=== PATIENT | female | born 1990 | race Caucasian/White ===

== ENCOUNTER 2018-04-19 18:08 | Emergency (ER) | payer OTHER, MEDICAID, SELFPAY ==
[2018-04-19 18:23] VITALS: BP 118/86; PULSE 109; RESP 20; TEMP 36.8; O2SAT 100
--- NOTE | 2018-04-19 18:26 | DI.RAD.S_ITS ---
PROCEDURE: XR WRIST LT MIN 3V INDICATIONS: lt distal medial pain after catching a cheerleader TECHNIQUE: 3 views of the wrist were acquired. COMPARISON: None. FINDINGS: Bones: No fractures or dislocations. No suspicious bony lesions. Soft tissues: No suspicious soft tissue calcifications. IMPRESSION: No acute fracture or dislocation. If pain persists, consider repeat imaging in 5-7 days to exclude occult fracture. Dictated by: Estefany Maciel M.D. on 04/19/2018 at 18:50 Approved by: Estefany Maciel M.D. on 04/19/2018 at 18:50
--- NOTE | 2018-04-19 20:48 | ED.UPPEXIN ---
HPI - Extremity Injury (Upper) General Chief Complaint: Extremity Injury, Upper Stated Complaint: injured wrist last week. Time Seen by Provider: 04/19/18 20:43 Source: patient Mode of arrival: ambulatory Limitations: no limitations History of Present Illness HPI narrative: the patient is a 27-year-old female who presents with left wrist pain. 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 Girl handed all right on her wrist. She said it was never really swollen but she continues to have pain. She was taping it which she said initially helped. She has no numbness or tingling. complaint: injury to: left Onset (ago): week(s) (1) Related Data Home Medications Medication Instructions Recorded Confirmed amoxicillin 500 mg PO TID #0 09/27/17 Review of Systems Review of Systems GENERAL: Denies chills,fever HEENT: Denies throat pain RESPIRATORY: Denies dyspnea, cough, wheezing CARDIOVASCULAR: Denies chest pain, palpitations GASTROINTESTINAL: Denies nausea, vomiting MUSCULOSKELETAL: See HPI SKIN: No rash, no laceration, no pruritus NEUROLOGIC: Denies weakness, dizziness, headache, numbness 8 point review of systems is negative except for those stated above and HPI PFSH Medical History Anxiety (Acute) Social History Smoking Status: Never smoker alcohol intake: never substance use type: does not use Exam Initial Vital Signs Initial Vital Signs: Vital Signs Temperature 98.3 F 04/19/18 18:23 Pulse Rate 109 H 04/19/18 18:23 Respiratory Rate 20 04/19/18 18:23 Blood Pressure 118/86 04/19/18 18:23 Pulse Oximetry 100 04/19/18 18:23 GENERAL: Well-appearing, well-nourished and in no acute distress. CARDIOVASCULAR: peripheral pulses in tact, cap refill <2 sec RESPIRATORY: No respiratory distress, speaks in full sentences without difficulty EXTREMITIES: Normal range of motion, no clubbing or edema. Neurovascularly intact. - left wrist no swelling no contusion neurovascularly intact full range of motion NEUROLOGICAL: Cranial nerves II through XII grossly intact. Normal gait and speech. SKIN: Warm, dry, no petechiae, no rashes or lesions. Course Orders Ordered: ED Orders 04/19/18 18:26 XR wrist LT min 3V Stat Vital Signs - 8 hr 04/19/18 18:23 Temperature 98.3 F Pulse Rate 109 H Respiratory Rate 20 Blood Pressure 118/86 Pulse Oximetry 100 MDM - Extremity Injury (Upper) Imaging Data left wrist x-ray: Radiologist's impression: PROCEDURE: XR WRIST LT MIN 3V INDICATIONS: lt distal medial pain after catching a cheerleader TECHNIQUE: 3 views of the wrist were acquired. COMPARISON: None. FINDINGS: Bones: No fractures or dislocations. No suspicious bony lesions. Soft tissues: No suspicious soft tissue calcifications. IMPRESSION: No acute fracture or dislocation. If pain persists, consider repeat imaging in 5-7 days to exclude occult fracture. Dictated by: Estefany Maciel M.D. on 04/19/2018 at 18:50 Discharge Plan Departure Patient Disposition: Home Clinical Impression: Left wrist sprain Instructions: Wrist Sprain Activity Restrictions/Additional Instructions: *You have been diagnosed with left wrist sprain *What to do: wear brace while active, increased movement as tolerated *Continue to take medications as directed Tylenol and Motrin please take as directed *Follow up with your primary care provider in 2-3 days *Return to ER if you should have any new, worsening or concerning symptoms Prescriptions: No Action amoxicillin 250 MG capsule 500 mg PO TID Qty: 0 RF: 0
[2018-04-19 21:04] VITALS: RESP 16
--- NOTE | 2018-04-19 21:04 | PC.NURSE ---
pt reports she caught a cheerleader wrong during practice, sharp pain to lt distal ulna, tender on exam, no deformity/contusion/swelling noted, distal cms intact with full AROM
== END 2018-04-19 21:05 | disposition home or self-care (01) ==
PROVIDERS: Emergency Provider Emergency Medicine
DX: S63.502A Unspecified sprain of left wrist, initial encounter (principal); W23.0XXA Caught, crushed, jammed, or pinched between moving objects, initial encounter
CPT/HCPCS: 29260; 73110; 99282; 99283

== ENCOUNTER 2018-11-13 19:27 | Emergency (ER) | payer OTHER, SELFPAY ==
[2018-11-13 19:37] VITALS: BP 131/86; PULSE 88; RESP 18; TEMP 37.3; O2SAT 100; BMI 24.7
--- NOTE | 2018-11-13 19:48 | ED_ITS ---
HPI - Extremity Problem <Nilsa Meng PA-C - Last Filed: 11/13/18 22:03> General Chief complaint: Extremity Problem,Nontraumatic Stated complaint: left wrist pain Time Seen by Provider: 11/13/18 20:06 Source: patient Mode of arrival: ambulatory Limitations: no limitations History of Present Illness HPI Narrative: This 28-year-old right-handed female comes in due to chronic, worsening left wrist pain. 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 She states that she was seen another local hospital, x-ray negative for fracture, and was given a wrist brace that she wore for 5 or 6 weeks but did not feel like the brace help. She states she started taping and felt better if the wrist was taped or she squeezed her hand around her wrist for while. She states that has no longer been working and she has constant pain gradually getting worse over the last month. She states she is finding it hard to supervisor liquid yeast objects and twist or open a jar for example. She states that last night, she went to move her pillow and felt a snap sensation in that wrist. She is concerned about possibility of previously undiagnosed injury. She states she has tried taking some Tylenol arthritis or ibuprofen but has not done that consistently, has not taken it today. She states ice helped somewhat. She feels like it is pain rather than weakness that stops her from movement, states no paresthesia or other new symptoms today. Related Data Home Medications Medication Instructions Recorded Confirmed amoxicillin 500 mg PO TID #0 09/27/17 Previous Rx's Medication Instructions Recorded lidocaine [Lidoderm] 1 patch TOP Q24H #30 each 11/13/18 meloxicam [Mobic] 15 mg PO DAILY #20 tab 11/13/18 Allergies Allergy/AdvReac Type Severity Reaction Status Date / Time No Known Drug Allergies Allergy Verified 11/13/18 19:45 Review of Systems <Nilsa Meng PA-C - Last Filed: 11/13/18 22:03> Review of Systems ROS Unobtainable: All systems reviewed & are unremarkable except as noted in HPI and below PFSH <GEE Clayton Last Filed: 11/13/18 22:03> Medical History (Updated 11/13/18 @ 21:10 by Nilsa Meng PA-C) Anxiety (Chronic) Surgical History (Updated 11/13/18 @ 20:31 by Nilsa Meng PA-C) Status post appendectomy (Resolved) Social History Smoking Status: Never smoker alcohol intake: never substance use type: does not use Social History Smoking Status: Never smoker alcohol intake: never substance use type: does not use Exam <Nilsa Meng PA-C - Last Filed: 11/13/18 22:03> Narrative Exam Narrative: GENERAL APPEARANCE: Patient sitting comfortably, in no distress. LUNGS: Clear to auscultation bilaterally. HEART: Rate and rhythm regular without murmur, normal S1 and S2, no S3 or S4. MUSCULOSKELETAL: Left wrist moderate tenderness on the ulnar side, more on the dorsum, less tenderness in the mid wrist, no tenderness on the radial side. Full a ROM with tenderness on full flexion and medial deviation. No tenderness over the hand or fingers. No tenderness over the for. [employer] strength 5/5 with tenderness NEUROVASCULAR: Left hand fingers are warm and pink with brisk cap refill, sensation grossly intact Initial Vital Signs Initial Vital Signs: Vital Signs Temperature 99.1 F 11/13/18 19:37 Pulse Rate 88 11/13/18 19:37 Respiratory Rate 18 11/13/18 19:37 Blood Pressure 131/86 11/13/18 19:37 Pulse Oximetry 100 11/13/18 19:37 <Benjy Kovacs DO - Last Filed: 11/14/18 03:08> Initial Vital Signs Initial Vital Signs: Vital Signs Temperature 99.1 F 11/13/18 19:37 Pulse Rate 88 11/13/18 19:37 Respiratory Rate 18 11/13/18 19:37 Blood Pressure 131/86 11/13/18 19:37 Pulse Oximetry 100 11/13/18 19:37 Course <Nilsa Meng PA-C - Last Filed: 11/13/18 22:03> Orders Ordered: ED Orders 11/13/18 20:16 XR wrist LT min 3V Stat Vital Signs - 8 hr 11/13/18 19:37 11/13/18 21:15 Temperature 99.1 F Pulse Rate 88 74 Respiratory Rate 18 14 Blood Pressure 131/86 107/73 Pulse Oximetry 100 100 <Benjy Kovacs DO - Last Filed: 11/14/18 03:08> Orders Ordered: ED Orders 11/13/18 20:16 XR wrist LT min 3V Stat Vital Signs - 8 hr 11/13/18 19:37 11/13/18 21:15 Temperature 99.1 F Pulse Rate 88 74 Respiratory Rate 18 14 Blood Pressure 131/86 107/73 Pulse Oximetry 100 100 MDM - Extremity (Nontraumatic) <Nilsa Meng PA-C - Last Filed: 11/13/18 22:03> Imaging Data wrist: Radiologist's impression: [address] [address] XRay Report Signed Patient: Liaan Stratton CMR#: [id number] : 1990Acct:[id number] Age/Sex: 28 / FDate of Service: 11/13/18 Loc: ED Accession Number: [id number] Procedure: XR wrist LT min 3V Ordering Provider: Nilsa Meng P.A-C PROCEDURE: XR WRIST LT MIN 3V INDICATIONS: medial pain TECHNIQUE: 4 views of the wrist were acquired. COMPARISON: [facility], , XR WRIST LT MIN 3V, 04/19/2018, 18:06. FINDINGS: Bones: No fractures or dislocations. No suspicious bony lesions. Scaphoid view: Negative Soft tissues: No suspicious soft tissue calcifications. IMPRESSION: No acute fracture. No osseous lesion. If clinical suspicion and/or symptoms persist, further assessment with repeat plainfilms, or advanced imaging (e.g., CT, MRI, or bone scan) may be helpful for further assessment. Dictated by: Lydia Calderon M.D. on 11/13/2018 at 20:27 Approved by: Lydia Calderon M.D. on 11/13/2018 at 20:28 Discharge Plan Departure Patient Disposition: Home Clinical Impression: Left wrist tendinitis Discharge Date/Time: 11/13/18 21:16 Interventions: ED Discharge Assessment Last Done: 11/13/18 21:15 Instructions: DI for Tendinitis Activity Restrictions/Additional Instructions: Your x-ray did not show evidence of bone or joint injury today, and I suspect that you have a chronic tendon inflammation in your wrist. This is exacerbated by overuse. 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 This is called meloxicam. This will not cure the problem, but may help the pain and inflammation. I also sent in a prescription for topical anesthetic patches for you to try around the sore side of the wrist. You could wear that inside the splint. Please try your wrist immobilizer 11/01 again to keep stress off of the wrist. Please call your new PCP office and let them know that you were seen in the emergency room so that they can get you in for follow-up, as therapy for this wrist may be helpful as well. You can supplement with Tylenol as needed for pain. Prescriptions: New meloxicam [Mobic] 15 mg tablet 15 mg PO DAILY Qty: 20 RF: 0 lidocaine [Lidoderm] 5 % adhesive patch,medicated 1 patch TOP Q24H Qty: 30 RF: 0 No Action amoxicillin 250 MG capsule 500 mg PO TID Qty: 0 RF: 0 [facility] <Benjy Kovacs DO - Last Filed: 11/14/18 03:08> [place] [facility] Attending Rashid Attestation: I was immediately available in the department for consultation. Documentation has been reviewed. I agree with assessment and plan.
--- NOTE | 2018-11-13 19:56 | PC.NURSE ---
States having difficulty gripping items. Was handed a pen by a friend and dropped it. The pain has been increasing over the last month. Has been wearing wrist brace.
--- NOTE | 2018-11-13 20:16 | DI.RAD.S_ITS ---
PROCEDURE: XR WRIST LT MIN 3V INDICATIONS: medial pain TECHNIQUE: 4 views of the wrist were acquired. COMPARISON: [facility], , XR WRIST LT MIN 3V, 04/19/2018, 18:06. FINDINGS: Bones: No fractures or dislocations. No suspicious bony lesions. Scaphoid view: Negative Soft tissues: No suspicious soft tissue calcifications. IMPRESSION: No acute fracture. No osseous lesion. If clinical suspicion and/or symptoms persist, further assessment with repeat plainfilms, or advanced imaging (e.g., CT, MRI, or bone scan) may be helpful for further assessment. Dictated by: Lydia Calderon M.D. on 11/13/2018 at 20:27 Approved by: Lydia Calderon M.D. on 11/13/2018 at 20:28
[2018-11-13 21:15] VITALS: BP 107/73; PULSE 74; RESP 14; O2SAT 100
== END 2018-11-13 21:16 | disposition home or self-care (01) ==
PROVIDERS: Emergency Provider Internal Medicine
DX: M65.842 Other synovitis and tenosynovitis, left hand (principal)
CPT/HCPCS: 73110; 99283

== ENCOUNTER 2019-09-29 13:41 | Emergency (ER) | payer SELFPAY ==
[2019-09-29] VITALS (8 sets, daily range): BP systolic 99–110; BP diastolic 55–73; PULSE 63–86; RESP 12–18; TEMP 36.7–37.1; O2SAT 98–100; BMI 23.0
[2019-09-29 14:16] LABS: Add Manual Diff / Slide Review NO; Basophils Absolute Auto 0 /uL (0-100); Basophils Percent Auto 0.7 % (0-2); Eosinophils Absolute Auto 100 /uL (0-450); Eosinophils Percent Auto 0.9 % (2-4); Hematocrit 42.3 % (36-46); Hemoglobin 14.2 g/dL (12.0-16.0); Lymphocytes Absolute Auto 900 /uL (1100-4500); Lymphocytes Percent Auto 12.1 % (25-40); Mean Corpuscular HGB Conc 33.6 % (30-36); Mean Corpuscular Volume 89.2 fL (80-100); Monocytes Absolute Auto 600 /uL (0-900); Monocytes Percent Auto 8.4 % (3-14); Neutrophils Absolute Auto 5500 /uL (1500-7000); Neutrophils Percent Auto 77.9 % (50-75); Red Blood Cell Count 4.74 X10^6/uL (4.0-5.2); Red Cell Distribution Width 13.6 % (11.6-14.8); White Blood Cell Count 7.1 X10^3/uL (4.5-11.0)
[2019-09-29 14:20] LABS: INR 1.1 (0.9-1.3); Prothrombin Time 12.4 SECONDS (10.1-12.7)
[2019-09-29 14:23] LABS: PTT Partial Thromboplastin Tim 28 SECONDS (26.4-36.2)
[2019-09-29 14:27] LABS: Alanine Aminotransferase 26 IU/L (<35); Albumin 4.2 g/dL (3.5-5.0); Albumin Globulin Ratio 1.3 (1.0-2.8); Alkaline Phosphatase 51 U/L (38-126); Aspartate Aminotransferase 34 IU/L (14-36); BUN Creatinine Ratio 14.7 (6-22); Bilirubin Total 0.5 mg/dL (0.2-1.3); Blood Urea Nitrogen 11 mg/dL (7-17); Calcium 9.2 mg/dL (8.4-10.2); Carbon Dioxide 31 mmol/L (22-32); Chloride 99 mmol/L (98-107); Estimated Glomerular Filt Rate > 60.0 mL/min (>60); Globulin 3.2 g/dL (1.7-4.1); Glucose 149 mg/dL (70-100); HEMOLYSIS < 15 (0-50); Lipase 89 U/L (23-300); Potassium 3.4 mmol/L (3.4-5.1); Sodium 137 mmol/L (137-145); Total Protein 7.4 g/dL (6.3-8.2)
--- NOTE | 2019-09-29 14:51 | DI.US.S_ITS ---
PROCEDURE: US ABDOMEN LIMITED INDICATIONS: EPIGASTRIC PAIN; NAUSEA, VOMITING TECHNIQUE: Real-time scanning was performed of the abdominal and retroperitoneal organs, with image documentation. COMPARISON: None. FINDINGS: Liver: Liver is normal in size. Increased liver parenchyma echotexture is seen. No discrete hepatic lesion. Gallbladder: There is no gallstone. No gallbladder wall thickening or pericholecystic fluid. No sonographic Arboleda's sign. Biliary ducts: Intrahepatic bile ducts are non-dilated. Extrahepatic bile duct caliber measures 3.2 mm. Normal is 6-7 mm or less in diameter, or 10 mm or less post-cholecystectomy. Pancreas: Visualized portions of the pancreas are sonographically normal. IMPRESSION: Hepatic steatosis, no discrete hepatic lesion. Normal appearing gallbladder. No biliary ductal dilatation. Dictated by: Mike Cueva M.D. on 09/29/2019 at 15:09 Approved by: Mike Cueva M.D. on 09/29/2019 at 15:09
[2019-09-29 14:54] LABS: Creatine Kinase 77 U/L (30-135)
[2019-09-29 15:07] LABS: Troponin I < 0.012 ng/mL (0.01-0.034)
[2019-09-29] MEDS: SODIUM CHLORIDE 0.9% 1,000 ML 1000 ML IV (15:40)
[2019-09-29] MEDS: ONDANSETRON 4 MG/2 ML INJ IV (15:42)
[2019-09-29] MEDS: KETOROLAC 60 MG/2 ML VIAL 15 MG IV (15:43)
[2019-09-29] MEDS: PANTOPRAZOLE 40 MG VIAL IV (15:45)
[2019-09-29] MEDS: MAG HYDROX/ALUMINUM/SIMETH SUS 20 ML, LIDOCAINE VISCOUS 2% 15 ML PO (18:45)
--- NOTE | 2019-09-29 23:30 | ED.ABDPAIN ---
HPI - Abdominal Pain <GRANT Alaniz - Last Filed: 09/30/19 00:07> General Chief Complaint: Abdominal Pain Stated Complaint: Stomach pain/passed out in bathroom nausea Time Seen by Provider: 09/29/19 14:19 Source: patient Mode of arrival: Ambulatory Limitations: no limitations History of Present Illness HPI narrative: This is a 29-year-old female, nonsmoker, who presents to ED with epigastric discomfort for 1 week and nausea and vomiting, dizziness and syncopal episode when she was in the bathroom to vomit. Patient reports she did not injured from syncopal episode and she knew she was going to pass out and laid herself down in the bathroom floor. She is not sure the duration of syncopal episode. She was able to make it back to the bed after this. Patient reports pain is worse with taking deep breaths and pain radiates to right shoulder and back region. She has been having dry heaves mostly and denies blood in her vomit. She reports abdominal bloatedness and had 1 episode of diarrhea this morning. Patient reports her pain is 9/10, sharp, stinging, and stabbing in character and constant. Patient reports chills and feeling sweaty. Patient denies ill exposure, sore throat, cough, body aches. Patient also reports right flank pain but denies urinary symptoms such as urgency, hematuria, dysuria. Patient reports history of appendectomy. Related Data Home Medications Medication Instructions Recorded Confirmed amoxicillin 500 mg PO TID #0 09/27/17 Previous Rx's Medication Instructions Recorded lidocaine [Lidoderm] 1 patch TOP Q24H #30 each 11/13/18 meloxicam [Mobic] 15 mg PO DAILY #20 tab 11/13/18 ondansetron 4 mg PO Q8H PRN 4 Days #10 tab 09/30/19 Allergies Allergy/AdvReac Type Severity Reaction Status Date / Time No Known Drug Allergies Allergy Verified 09/29/19 13:50 Review of Systems <GRANT Alaniz - Last Filed: 09/30/19 00:07> Review of Systems Narrative: General: Denies (+) feeling sweat and chills, fatigue, malaise, sweats. HEENT: Denies sinus pain, ear pain, sore throat, difficulty swallowing, dizziness. Respiratory: Denies dyspnea, cough, wheezing, hemoptysis, sputum. Cardiovascular: Denies chest pain, palpitations, orthopnea, edema. Gastrointestinal: See HPI : Denies dysuria, frequency, incontinence, hematuria, urinary retention, (+) right flank pain. Musculoskeletal: Denies weakness, joint pain or bony pain. Skin: Denies rash, skin lesions, or other. Neurologic: Denies weakness, (+) dizziness during ambulation, headache, numbness, change in speech, confusion, seizures, incoordination. Psychiatric: No concerning psychosocial issues. 12-point review of systems is negative except for those stated above. Patient History <GRANT Alaniz - Last Filed: 09/30/19 00:07> Medical History Anxiety (Chronic) Surgical History Status post appendectomy (Resolved) Social History Smoking Status: Never smoker alcohol intake: never substance use type: does not use Smoking Status: Never smoker alcohol intake frequency: holidays/special occasions only Substance Use Type: does not use Exam <GRANT Alaniz - Last Filed: 09/30/19 00:07> Narrative Exam Narrative: General appearance: well developed, well nourished, in no acute distress. Head: normocephalic, atraumatic, no scalp lesions, non-tender. ENT: Bilateral auditory canals and tympanic membranes clear. Hearing grossly intact. Nose without bleeding, purulent discharge or deviation. Turbinate without erythema or swelling. Facial sinuses nontender to palpate. Mucous membrane dry, no mucosal lesion. Throat without erythema, tonsillar hypertrophy or exudate. Uvula in midline, airway patent. Neck/Thyroid: neck supple, full range of motion, no visible masses or meningeal signs. No JVD, non-tender without lymphadenopathy. Skin: no suspicious rashes, lesions over visible areas. Warm and dry and appropriate color for ethnicity. Heart: no clubbing, no cyanosis, no edema. S1 and S2 normal. RRR w/o murmurs, clicks, or bruits. Lungs: Breathing even and unlabored. No stridor. No accessory muscles used. Able to speak in full sentences. Chest: normal shape and expansion. Abdomen: Abdomen soft, nondistended, non-obese. No rebound tenderness or guarding. Bowel sounds positive in 4 quadrants. Neurologic: alert and oriented. Cognitive exam, ROLL ICER and PNS grossly intact on informal exam. Psych: good eye contact, normal affect. Initial Vital Signs Initial Vital Signs: Vital Signs Temperature 98.0 F 09/29/19 13:50 Pulse Rate 83 09/29/19 13:50 Respiratory Rate 15 09/29/19 13:50 Blood Pressure 104/73 09/29/19 13:50 Pulse Oximetry 98 09/29/19 13:50 <Layla Ventura MD - Last Filed: 09/30/19 07:28> Initial Vital Signs Initial Vital Signs: Vital Signs Temperature 98.0 F 09/29/19 13:50 Pulse Rate 83 09/29/19 13:50 Respiratory Rate 15 09/29/19 13:50 Blood Pressure 104/73 09/29/19 13:50 Pulse Oximetry 98 09/29/19 13:50 Scores <GRANT Alaniz - Last Filed: 09/30/19 00:07> GCS Autumn coma scale eye opening: Spontaneous Autumn coma scale verbal response: Orientated Autumn coma scale motor response: Obey commands [place] coma scale total score: 15 Course <GRANT Alaniz - Last Filed: 09/30/19 00:07> Orders Ordered: Discontinued Medications Al Hydrox/Mg Hydrox/Simethicone 20 ml/ Lidocaine HCl 15 ml 0 ml PO NOW ONE Stop: 09/29/19 18:26 Last Admin: 09/29/19 18:45 Dose: 15 ml Documented by: CTR.[email or web address] Sodium Chloride (Normal Saline 0.9%) 1,000 mls @ 1,000 mls/hr IV BOLUS ONE Stop: 09/29/19 15:32 Last Infusion: 09/29/19 18:51 Dose: 1,000 mls/hr Documented by: CTR.[email or web address] Admin: 09/29/19 15:40 Dose: 1,000 mls/hr Documented by: CTR.[email or web address] Ketorolac Tromethamine (Toradol) 15 mg IV NOW ONE Stop: 09/29/19 14:34 Last Admin: 09/29/19 15:43 Dose: 15 mg Documented by: CTR.[email or web address] Ondansetron HCl (Zofran) 4 mg IV NOW ONE Stop: 09/29/19 14:34 Last Admin: 09/29/19 15:42 Dose: 4 mg Documented by: CTR.[email or web address] Pantoprazole Sodium (Protonix) 40 mg IV NOW ONE Stop: 09/29/19 14:34 Last Admin: 09/29/19 15:45 Dose: 40 mg Documented by: CTR.[email or web address] Vital Signs Vital signs: Vital Signs - 8 hr 09/29/19 15:43 09/29/19 15:45 09/29/19 16:00 Temperature 98.7 F 98.7 F Pulse Rate 69 63 Respiratory Rate 16 12 Blood Pressure [Right Arm] 108/68 102/63 Pulse Oximetry 100 100 09/29/19 17:11 09/29/19 17:55 09/29/19 19:15 Temperature Pulse Rate 86 75 71 Respiratory Rate 16 16 16 Blood Pressure [Right Arm] 99/62 105/58 L 99/55 L Pulse Oximetry 100 100 <Layla Ventura MD - Last Filed: 09/30/19 07:28> Orders Ordered: Discontinued Medications Al Hydrox/Mg Hydrox/Simethicone 20 ml/ Lidocaine HCl 15 ml 0 ml PO NOW ONE Stop: 09/29/19 18:26 Last Admin: 09/29/19 18:45 Dose: 15 ml Documented by: CTR.[email or web address] Sodium Chloride (Normal Saline 0.9%) 1,000 mls @ 1,000 mls/hr IV BOLUS ONE Stop: 09/29/19 15:32 Last Infusion: 09/29/19 18:51 Dose: 1,000 mls/hr Documented by: CTR.[email or web address] Admin: 09/29/19 15:40 Dose: 1,000 mls/hr Documented by: CTR.CHINTAN Ketorolac Tromethamine (Toradol) 15 mg IV NOW ONE Stop: 09/29/19 14:34 Last Admin: 09/29/19 15:43 Dose: 15 mg Documented by: CTR.[email or web address] Ondansetron HCl (Zofran) 4 mg IV NOW ONE Stop: 09/29/19 14:34 Last Admin: 09/29/19 15:42 Dose: 4 mg Documented by: JANESSA Pantoprazole Sodium (Protonix) 40 mg IV NOW ONE Stop: 09/29/19 14:34 Last Admin: 09/29/19 15:45 Dose: 40 mg Documented by: CTRGINA Vital Signs Vital signs: Vital Signs - 8 hr 09/29/19 15:43 09/29/19 15:45 09/29/19 16:00 Temperature 98.7 F 98.7 F Pulse Rate 69 63 Respiratory Rate 16 12 Blood Pressure [Right Arm] 108/68 102/63 Pulse Oximetry 100 100 09/29/19 17:11 09/29/19 17:55 09/29/19 19:15 Temperature Pulse Rate 86 75 71 Respiratory Rate 16 16 16 Blood Pressure [Right Arm] 99/62 105/58 L 99/55 L Pulse Oximetry 100 100 MDM - Abdominal Pain <Chirag GRANT Anderson - Last Filed: 09/30/19 00:07> Differential Diagnosis Differential diagnosis: Likely abdominal pain, gastroenteritis, pancreatitis, small bowel obstruction and other (Cholecystitis, vasovagal syncope, , UTI, kidney infection) Medical Records Attestation: I reviewed the patient's medical records. Lab Data Attestation: I reviewed the patient's lab results. Result diagrams: 09/29/19 14:04 09/29/19 14:04 Labs: Lab Results 09/29/19 09/29/19 09/29/19 Range/Units 14:04 14:04 14:04 WBC 7.1 (4.5-11.0) X10^3/uL RBC 4.74 (4.0-5.2) X10^6/uL Hgb 14.2 (12.0-16.0) g/dL Hct 42.3 (36-46) % MCV 89.2 (80-100) fL MCH 30.0 (26-34) PG MCHC 33.6 (30-36) % RDW 13.6 (11.6-14.8) % Plt Count TNP Neut % (Auto) 77.9 H (50-75) % Lymph % (Auto) 12.1 L (25-40) % [place] % (Auto) 8.4 (3-14) % Eos % (Auto) 0.9 L (2-4) % Baso % (Auto) 0.7 (0-2) % Neut # (Auto) 5500 (2063-1391) /uL Lymph # (Auto) 900 L (2097-1491) /uL [place] # (Auto) 600 (0-900) /uL Eos # (Auto) 100 (0-450) /uL Baso # (Auto) 0 (0-100) /uL PT 12.4 (10.1-12.7) SECONDS INR 1.1 (0.9-1.3) APTT 28 (26.4-36.2) SECONDS Sodium 137 (137-145) mmol/L Potassium 3.4 (3.4-5.1) mmol/L Chloride 99 (98-107) mmol/L Carbon Dioxide 31 (22-32) mmol/L BUN 11 (7-17) mg/dL Creatinine 0.75 (0.52-1.04) mg/dL Estimated GFR > 60.0 (>60) mL/min BUN/Creatinine Ratio 14.7 (6-22) Glucose 149 H (70-100) mg/dL Calcium 9.2 (8.4-10.2) mg/dL Total Bilirubin 0.5 (0.2-1.3) mg/dL AST 34 (14-36) IU/L ALT 26 (<35) IU/L Alkaline Phosphatase 51 (38-126) U/L Total Creatine Kinase (30-135) U/L CK-MB (CK-2) CK-MB (CK-2) Rel Index Troponin I (0.01-0.034) ng/mL Total Protein 7.4 (6.3-8.2) g/dL Albumin 4.2 (3.5-5.0) g/dL Globulin 3.2 (1.7-4.1) g/dL Albumin/Globulin Ratio 1.3 (1.0-2.8) Lipase 89 (23-300) U/L 09/29/19 Range/Units 14:04 WBC (4.5-11.0) X10^3/uL RBC (4.0-5.2) X10^6/uL Hgb (12.0-16.0) g/dL Hct (36-46) % MCV (80-100) fL MCH (26-34) PG MCHC (30-36) % RDW (11.6-14.8) % Plt Count Neut % (Auto) (50-75) % Lymph % (Auto) (25-40) % [place] % (Auto) (3-14) % Eos % (Auto) (2-4) % Baso % (Auto) (0-2) % Neut # (Auto) (3640-1064) /uL Lymph # (Auto) (8637-6522) /uL [place] # (Auto) (0-900) /uL Eos # (Auto) (0-450) /uL Baso # (Auto) (0-100) /uL PT (10.1-12.7) SECONDS INR (0.9-1.3) APTT (26.4-36.2) SECONDS Sodium (137-145) mmol/L Potassium (3.4-5.1) mmol/L Chloride (98-107) mmol/L Carbon Dioxide (22-32) mmol/L BUN (7-17) mg/dL Creatinine (0.52-1.04) mg/dL Estimated GFR (>60) mL/min BUN/Creatinine Ratio (6-22) Glucose (70-100) mg/dL Calcium (8.4-10.2) mg/dL Total Bilirubin (0.2-1.3) mg/dL AST (14-36) IU/L ALT (<35) IU/L Alkaline Phosphatase (38-126) U/L Total Creatine Kinase 77 (30-135) U/L CK-MB (CK-2) TNP CK-MB (CK-2) Rel Index TNP Troponin I < 0.012 (0.01-0.034) ng/mL Total Protein (6.3-8.2) g/dL Albumin (3.5-5.0) g/dL Globulin (1.7-4.1) g/dL Albumin/Globulin Ratio (1.0-2.8) Lipase (23-300) U/L Point of care testing: Point of Care Testing Test Results Negative Urine Dip Bedside Urine Glucose Negative Bedside Urine Bilirubin - Negative Bedside Urine Ketone - Negative Urine Specific [place] 1.010 Bedside Urine Occult Blood - Negative Bedside Urine pH 8.0 Bedside Urine Protein - Negative Bedside Urine Urobilinogen +/- 1mg Bedside Urine Nitrite - Negative Bedside Urine Leukocytes - Negative Esterase Imaging Data US - abdomen: Radiologist's Impression: [address] [address] Ultrasound Report Signed Patient: Liana Stratton CMR#: [id number] : 1990Acct:[id number] Age/Sex: 29 / FDate of Service: 09/29/19 Loc: ED Accession Number: [id number] Procedure: US abdomen limited Ordering Provider: Chirag Anderson PROCEDURE: US ABDOMEN LIMITED INDICATIONS: EPIGASTRIC PAIN; NAUSEA, VOMITING TECHNIQUE: Real-time scanning was performed of the abdominal and retroperitoneal organs, with image documentation. COMPARISON: None. FINDINGS: Liver: Liver is normal in size. Increased liver parenchyma echotexture is seen. No discrete hepatic lesion. Gallbladder: There is no gallstone. No gallbladder wall thickening or pericholecystic fluid. No sonographic Arboleda's sign. Biliary ducts: Intrahepatic bile ducts are non-dilated. Extrahepatic bile duct caliber measures 3.2 mm. Normal is 6-7 mm or less in diameter, or 10 mm or less post-cholecystectomy. Pancreas: Visualized portions of the pancreas are sonographically normal. IMPRESSION: Hepatic steatosis, no discrete hepatic lesion. Normal appearing gallbladder. No biliary ductal dilatation. Dictated by: Mike Cueva M.D. on 09/29/2019 at 15:09 Approved by: Mike Cueva M.D. on 09/29/2019 at 15:09 ECG Data Attestation: I personally reviewed and interpreted this ECG as follows: Prior ECG tracings: not available for review Interpretation: SR rate at 76. Normal [place]. HI int 168, QRS dur 102, QT/QTC 398/428. No ST elevation or depression. MDM Narrative Medical decision making narrative: This is a 29-year-old female who presents to ED with epigastric pain with syncopal episode when she had nausea, vomiting in the bathroom. Patient reports she has been having epigastric pain for 1 week. She also had 1 episode of diarrhea today. There is no blood in her stool or diarrhea. Patient is afebrile despite reports subjective fever and chills without tachycardia and within normal blood pressure. No leukocytosis but mildly elevated neutrophil of 77.9. Stable H&H. Mildly elevated serum glucose of 149. Normal kidney function test and otherwise chemistry test was unremarkable. Cardiac enzymes were negative. Normal liver function test including lipase. Abdomen was soft without distension without obvious Arboleda's sign. Urine test was negative. No indication of urine infection secondary to urine nitrite or leukoesterase. There was no hematuria. Abdominal ultrasound test shows no gallstone and no gallbladder wall thickening or pericholecystic fluid. Intrahepatic bile duct was nondilated. Pancreas was normal that was visualized. Liver is normal size but increased liver parenchymal echotexture likely due to hepatic steatosis. Patient was hydrated with normal saline IV fluid, medicated with IV Zofran, Toradol, pantoprazole. Patient reports some a improved symptoms and was able to tolerate fluids. Patient medicated with GI cocktail for remaining epigastric discomfort. Advised to hydrate adequately with small frequent sips of liquid and discharged to home with Zofran Rx. Patient advised follow-up with PCP and return precautions were discussed with patient. Patient's syncopal episode is likely due to vasovagal etiology. Patient verbalized understanding and agreement with treatment plan. <Layla Ventura MD - Last Filed: 09/30/19 07:28> Medical Records Attestation: I reviewed the patient's medical records. Lab Data Attestation: I reviewed the patient's lab results. Labs: Lab Results 09/29/19 09/29/19 09/29/19 Range/Units 14:04 14:04 14:04 WBC 7.1 (4.5-11.0) X10^3/uL RBC 4.74 (4.0-5.2) X10^6/uL Hgb 14.2 (12.0-16.0) g/dL Hct 42.3 (36-46) % MCV 89.2 (80-100) fL MCH 30.0 (26-34) PG MCHC 33.6 (30-36) % RDW 13.6 (11.6-14.8) % Plt Count TNP Neut % (Auto) 77.9 H (50-75) % Lymph % (Auto) 12.1 L (25-40) % [place] % (Auto) 8.4 (3-14) % Eos % (Auto) 0.9 L (2-4) % Baso % (Auto) 0.7 (0-2) % Neut # (Auto) 5500 (7872-3021) /uL Lymph # (Auto) 900 L (3242-3099) /uL [place] # (Auto) 600 (0-900) /uL Eos # (Auto) 100 (0-450) /uL Baso # (Auto) 0 (0-100) /uL PT 12.4 (10.1-12.7) SECONDS INR 1.1 (0.9-1.3) APTT 28 (26.4-36.2) SECONDS Sodium 137 (137-145) mmol/L Potassium 3.4 (3.4-5.1) mmol/L Chloride 99 (98-107) mmol/L Carbon Dioxide 31 (22-32) mmol/L BUN 11 (7-17) mg/dL Creatinine 0.75 (0.52-1.04) mg/dL Estimated GFR > 60.0 (>60) mL/min BUN/Creatinine Ratio 14.7 (6-22) Glucose 149 H (70-100) mg/dL Calcium 9.2 (8.4-10.2) mg/dL Total Bilirubin 0.5 (0.2-1.3) mg/dL AST 34 (14-36) IU/L ALT 26 (<35) IU/L Alkaline Phosphatase 51 (38-126) U/L Total Creatine Kinase (30-135) U/L CK-MB (CK-2) CK-MB (CK-2) Rel Index Troponin I (0.01-0.034) ng/mL Total Protein 7.4 (6.3-8.2) g/dL Albumin 4.2 (3.5-5.0) g/dL Globulin 3.2 (1.7-4.1) g/dL Albumin/Globulin Ratio 1.3 (1.0-2.8) Lipase 89 (23-300) U/L 09/29/19 Range/Units 14:04 WBC (4.5-11.0) X10^3/uL RBC (4.0-5.2) X10^6/uL Hgb (12.0-16.0) g/dL Hct (36-46) % MCV (80-100) fL MCH (26-34) PG MCHC (30-36) % RDW (11.6-14.8) % Plt Count Neut % (Auto) (50-75) % Lymph % (Auto) (25-40) % [place] % (Auto) (3-14) % Eos % (Auto) (2-4) % Baso % (Auto) (0-2) % Neut # (Auto) (7904-9140) /uL Lymph # (Auto) (5172-5090) /uL [place] # (Auto) (0-900) /uL Eos # (Auto) (0-450) /uL Baso # (Auto) (0-100) /uL PT (10.1-12.7) SECONDS INR (0.9-1.3) APTT (26.4-36.2) SECONDS Sodium (137-145) mmol/L Potassium (3.4-5.1) mmol/L Chloride (98-107) mmol/L Carbon Dioxide (22-32) mmol/L BUN (7-17) mg/dL Creatinine (0.52-1.04) mg/dL Estimated GFR (>60) mL/min BUN/Creatinine Ratio (6-22) Glucose (70-100) mg/dL Calcium (8.4-10.2) mg/dL Total Bilirubin (0.2-1.3) mg/dL AST (14-36) IU/L ALT (<35) IU/L Alkaline Phosphatase (38-126) U/L Total Creatine Kinase 77 (30-135) U/L CK-MB (CK-2) TNP CK-MB (CK-2) Rel Index TNP Troponin I < 0.012 (0.01-0.034) ng/mL Total Protein (6.3-8.2) g/dL Albumin (3.5-5.0) g/dL Globulin (1.7-4.1) g/dL Albumin/Globulin Ratio (1.0-2.8) Lipase (23-300) U/L Point of care testing: Point of Care Testing Test Results Negative Urine Dip Bedside Urine Glucose Negative Bedside Urine Bilirubin - Negative Bedside Urine Ketone - Negative Urine Specific [place] 1.010 Bedside Urine Occult Blood - Negative Bedside Urine pH 8.0 Bedside Urine Protein - Negative Bedside Urine Urobilinogen +/- 1mg Bedside Urine Nitrite - Negative Bedside Urine Leukocytes - Negative Esterase Discharge Plan Departure Patient Disposition: Home Clinical Impression: Syncope, vasovagal, Epigastric abdominal pain Vomiting Qualifiers: Vomiting type: unspecified Vomiting Intractability: non-intractable Nausea presence: unspecified Qualified Code(s): R11.10 - Vomiting, unspecified Discharge Date/Time: 09/29/19 19:20 Instructions: DI for Syncope in Adults (Fainting), DI for Vomiting -- Adult, DI for Epigastric Pain Activity Restrictions/Additional Instructions: You have been diagnosed with [vasovagal syncope, epigastric pain, vomiting. EKG was normal sinus rhythm. Ultrasound on abdomen indicates hepatics steatosis without gallstone, inflammation or pancreatitis. Chemistry test was unremarkable with negative cardiac enzymes and normal liver function tests. You were medicated with IV medication for nausea, pain, hydration. Your able to tolerate fluids before discharged to home]. What to do: *Take your medications as directed. Please take Zofran as needed for nausea. After this, he can hydrate herself with small sips of clear liquids and advance her diet as needed to bland. The medication has been transmitted to [facility]. You can take [id number] omeprazole, Pepcid as needed for discomfort. You can take Tylenol and or Motrin for discomfort or fever. *Follow up with your primary care provider in 2-3 days, call for an appointment. Let them know you were seen in the ED and that we asked you to be seen in follow up. *Return to ED if you have any new, worsening, or concerning symptoms, such as [chest pain, breathing difficulty, unable to tolerate fluids, fainting episodes, fever, or any acute concerns]. Prescriptions: New ondansetron 4 mg tablet,disintegrating 4 mg PO Q8H PRN (Reason: nausea and vomiting) 4 Days Qty: 10 RF: 0 No Action amoxicillin 250 MG capsule 500 mg PO TID Qty: 0 RF: 0 meloxicam [Mobic] 15 mg tablet 15 mg PO DAILY Qty: 20 RF: 0 lidocaine [Lidoderm] 5 % adhesive patch,medicated 1 patch TOP Q24H Qty: 30 RF: 0 Referrals: [facility] [Outside] <Layla Ventura MD - Last Filed: 09/30/19 07:28> [facility]: I was immediately available in the department for consultation throughout this patient's visit. I agree with documentation as above. Layla Ventura MD
== END 2019-09-29 19:20 | disposition home or self-care (01) ==
PROVIDERS: Emergency Medicine; Emergency Provider Nurse Practitioner Family
DX: R55 Syncope and collapse (principal); R10.13 Epigastric pain; R11.2 Nausea with vomiting, unspecified
CPT/HCPCS: 36415; 76705; 80053; 81003; 81025; 82550; 83690; 84484; 85025; 85610; 85730; 93005; 96361; 96374; 96375; 99284; C9113; J1885; J2405

== ENCOUNTER 2020-07-29 20:20 | Emergency (ER) | payer SELFPAY ==
[2020-07-29 20:24] VITALS: BP 178/102; PULSE 122; RESP 20; TEMP 36.9; O2SAT 99
[2020-07-29 22:10] VITALS: PULSE 77; RESP 21; O2SAT 100
[2020-07-29 22:22] LABS: Add Manual Diff / Slide Review NO; Basophils Absolute Auto 100 /uL (0-100); Eosinophils Absolute Auto 100 /uL (0-450); Eosinophils Percent Auto 0.8 % (2-4); Hematocrit 44.3 % (36-46); Hemoglobin 15.2 g/dL (12.0-16.0); Lymphocytes Absolute Auto 1600 /uL (1100-4500); Lymphocytes Percent Auto 13.8 % (25-40); Mean Corpuscular HGB Conc 34.2 % (30-36); Mean Corpuscular Hemoglobin 29.9 PG (26-34); Mean Corpuscular Volume 87.4 fL (80-100); Monocytes Absolute Auto 1200 /uL (0-900); Monocytes Percent Auto 10.8 % (3-14); Neutrophils Absolute Auto 8400 /uL (1500-7000); Neutrophils Percent Auto 73.6 % (50-75); Red Blood Cell Count 5.07 X10^6/uL (4.0-5.2); Red Cell Distribution Width 13.4 % (11.6-14.8); White Blood Cell Count 11.3 X10^3/uL (4.5-11.0)
[2020-07-29 22:30] VITALS: BP 130/75; PULSE 88; RESP 20; O2SAT 99
[2020-07-29 22:31] LABS: INR 1.1 (0.9-1.3); Prothrombin Time 12.4 SECONDS (10.1-12.7)
[2020-07-29 22:34] LABS: PTT Partial Thromboplastin Tim 25 SECONDS (26.4-36.2)
[2020-07-29 22:35] LABS: Alanine Aminotransferase 35 IU/L (<35); Albumin 4.6 g/dL (3.5-5.0); Albumin Globulin Ratio 1.3 (1.0-2.8); Alkaline Phosphatase 64 U/L (38-126); Aspartate Aminotransferase 33 IU/L (14-36); BUN Creatinine Ratio 23.3 (6-22); Bilirubin Total 0.6 mg/dL (0.2-1.3); Blood Urea Nitrogen 20 mg/dL (7-17); Calcium 9.4 mg/dL (8.4-10.2); Carbon Dioxide 35 mmol/L (22-32); Chloride 96 mmol/L (98-107); Estimated Glomerular Filt Rate > 60.0 mL/min (>60); Globulin 3.5 g/dL (1.7-4.1); Glucose 100 mg/dL (70-100); HEMOLYSIS < 15 (0-50); Lipase 196 U/L (23-300); Potassium 3.2 mmol/L (3.4-5.1); Sodium 136 mmol/L (137-145); Total Protein 8.1 g/dL (6.3-8.2)
[2020-07-29 22:39] LABS: Platelet Count 156 X10^3/uL (150-400)
[2020-07-29 23:00] VITALS: PULSE 87; RESP 18; O2SAT 99
[2020-07-29 23:13] LABS: Troponin I < 0.012 ng/mL (0.01-0.034)
--- NOTE | 2020-07-29 23:17 | DI.RAD.S_ITS ---
PROCEDURE: XR CHEST 1V INDICATIONS: dyspnea TECHNIQUE: One view of the chest was acquired. COMPARISON: [facility], , CHEST 2VW, 11/18/2008, 22:53. FINDINGS: Surgical changes and devices: None. Lungs and pleura: Lungs are clear. No pleural effusions or pneumothorax. Mediastinum: Mediastinal contours appear normal. Heart size is normal. Bones and chest wall: No suspicious bony lesions. Overlying soft tissues appear unremarkable. IMPRESSION: No acute cardiopulmonary disease process. Dictated by: Negin Keys MD, PhD on 07/30/2020 at 8:00 Approved by: Negin Keys MD, PhD on 07/30/2020 at 8:02
[2020-07-29 23:30] VITALS: PULSE 86; RESP 20; O2SAT 99
[2020-07-29 23:52] LABS: NT-proBNP (BNP-Adult 18+) 17 pg/mL (<125)
--- NOTE | 2020-07-29 23:57 | ED.GENADULT ---
HPI - General Adult General Chief complaint: Dizziness Stated complaint: LEFT SHOULDER PAIN DIZZY Time Seen by Provider: 07/29/20 23:17 Source: patient Mode of arrival: Ambulatory History of Present Illness HPI narrative: 30-year-old woman with a reported distant history of congestive heart failure currently on no medications and not seeing any physicians presents complaining of significant dizziness and general malaise. She got home from work this evening and was leaning over a bath tub when she became dramatically dizzy felt that she was going to pass out, developed some left arm pain, had 2 episodes of vomiting followed by significant shaking. She describes no overt chest pain, no fevers, cough, chills, abdominal pain. She notes that she has been feeling a bit dizzy over the course of today but that has gotten significantly worse after this episode this evening and is worsened by standing. She notes that she has been eating and drinking regularly today. She states that she has been voiding normally and typically has 1 bowel movement a month (apparently many women her in her family have this condition and all consider it normal). Related Data Home Medications Medication Instructions Recorded Confirmed amoxicillin 500 mg PO TID #0 09/27/17 Previous Rx's Medication Instructions Recorded lidocaine [Lidoderm] 1 patch TOP Q24H #30 each 11/13/18 meloxicam [Mobic] 15 mg PO DAILY #20 tab 11/13/18 Allergies Allergy/AdvReac Type Severity Reaction Status Date / Time No Known Drug Allergies Allergy Verified 09/29/19 13:50 Review of Systems Review of Systems ROS Unobtainable: All systems reviewed & are unremarkable except as noted in HPI and below Patient History Medical History (Updated 07/30/20 @ 02:48 by Layla Ventura MD) Anxiety Surgical History Status post appendectomy Social History Smoking Status: Never smoker alcohol intake: never substance use type: does not use Smoking Status: Never smoker alcohol intake frequency: holidays/special occasions only Substance Use Type: does not use Exam Narrative Exam Narrative: General: Mildly pale, anxious, able to give a complete coherent history. HEENT: Moist mucous membranes, normal sclera with reactive pupils, tympanic. Early williamson without retraction bilaterally Neck: No JVD, supple Respiratory: Lungs are clear to auscultation, no wheezing no rales no rhonchi. Full and symmetrical air movement Cardiac: Regular rate and rhythm no murmurs no bruits Abdomen: Soft, nontender, good bowel tones, no flank pain Skin: Warm and dry, no rashes Neurologic: Grossly neurologically intact with no obvious asymmetries or abnormalities Extremities: No trauma, well perfused Psych: Cooperative, appropriate insight and affect Positive orthostatics. Heart rate lying flat is sinus rhythm at 70 and standing up is 110 and she feels that she is going to pass out, decreases to 100 while sitting. Initial Vital Signs Initial Vital Signs: Vital Signs Temperature 98.4 F 07/29/20 20:24 Pulse Rate 122 H 07/29/20 20:24 Respiratory Rate 20 07/29/20 20:24 Blood Pressure 178/102 H 07/29/20 20:24 Pulse Oximetry 99 07/29/20 20:24 Course Orders Ordered: ED Orders 07/29/20 20:28 EKG-12 Lead Stat 07/29/20 22:00 Complete Blood Count AUTO DIFF Stat Comprehensive Metabolic Panel Stat Lipase Stat NT-proBNP (BNP-Adult 18+) Stat Partial Thromboplastin Time Stat Prothrombin Time INR Stat Troponin I Stat 07/29/20 23:17 XR chest 1V Stat 07/30/20 00:52 Urine Microscopic Stat Discontinued Medications Sodium Chloride (Normal Saline 0.9%) 1,000 mls @ 2,000 mls/hr IV BOLUS ONE Stop: 07/30/20 01:10 Last Infusion: 07/30/20 02:10 Dose: 0 mls/hr Documented by: Infusion: 07/30/20 00:53 Dose: 1,000 mls/hr Documented by: Admin: 07/30/20 00:50 Dose: 2,000 mls/hr Documented by: MARTINA Ondansetron HCl (Ondansetron 4 Mg/2 Ml Inj) 4 mg IV NOW ONE Stop: 07/30/20 00:42 Last Admin: 07/30/20 00:50 Dose: 4 mg Documented by: MARTINA Potassium Chloride (Potassium Chloride 20 Meq Tab) 40 meq PO NOW ONE Stop: 07/30/20 00:42 Last Admin: 07/30/20 00:50 Dose: 40 meq Documented by: MARTINA Vital Signs Vital signs: Vital Signs - 8 hr 07/29/20 20:24 07/29/20 22:10 07/29/20 22:30 Temperature 98.4 F Pulse Rate 122 H 77 88 Respiratory Rate 20 21 20 Blood Pressure 178/102 H 130/75 Pulse Oximetry 99 100 99 07/29/20 23:00 07/29/20 23:30 07/30/20 00:00 Temperature Pulse Rate 87 86 79 Respiratory Rate 18 20 18 Blood Pressure 120/81 Pulse Oximetry 99 99 97 07/30/20 00:30 07/30/20 00:38 07/30/20 01:00 Temperature Pulse Rate 77 96 H 63 Respiratory Rate 16 23 19 Blood Pressure 108/70 115/68 114/70 Pulse Oximetry 96 97 99 07/30/20 01:30 07/30/20 02:00 07/30/20 02:30 Temperature Pulse Rate 59 L 71 68 Respiratory Rate 17 14 16 Blood Pressure 111/75 109/65 101/67 Pulse Oximetry 100 100 98 Medical Decision Making Medical Records Medical records reviewed: Yes I reviewed the patient's medical records. Lab Data Lab results reviewed: Yes I reviewed the patient's lab results. Result diagrams: 07/29/20 22:00 07/29/20 22:00 Labs: Lab Results 07/29/20 07/29/20 07/29/20 Range/Units 22:00 22:00 22:00 WBC 11.3 H (4.5-11.0) X10^3/uL RBC 5.07 (4.0-5.2) X10^6/uL Hgb 15.2 (12.0-16.0) g/dL Hct 44.3 (36-46) % MCV 87.4 (80-100) fL MCH 29.9 (26-34) PG MCHC 34.2 (30-36) % RDW 13.4 (11.6-14.8) % Plt Count 156 (150-400) X10^3/uL Neut % (Auto) 73.6 (50-75) % Lymph % (Auto) 13.8 L (25-40) % [place] % (Auto) 10.8 (3-14) % Eos % (Auto) 0.8 L (2-4) % Baso % (Auto) 1.0 (0-2) % Neut # (Auto) 8400 H (2844-0912) /uL Lymph # (Auto) 1600 (1752-8832) /uL [place] # (Auto) 1200 H (0-900) /uL Eos # (Auto) 100 (0-450) /uL Baso # (Auto) 100 (0-100) /uL PT 12.4 (10.1-12.7) SECONDS INR 1.1 (0.9-1.3) APTT 25 L (26.4-36.2) SECONDS Sodium 136 L (137-145) mmol/L Potassium 3.2 L (3.4-5.1) mmol/L Chloride 96 L (98-107) mmol/L Carbon Dioxide 35 H (22-32) mmol/L BUN 20 H (7-17) mg/dL Creatinine 0.86 (0.52-1.04) mg/dL Estimated GFR > 60.0 (>60) mL/min BUN/Creatinine Ratio 23.3 H (6-22) Glucose 100 (70-100) mg/dL Calcium 9.4 (8.4-10.2) mg/dL Total Bilirubin 0.6 (0.2-1.3) mg/dL AST 33 (14-36) IU/L ALT 35 H (<35) IU/L Alkaline Phosphatase 64 (38-126) U/L Troponin I (0.01-0.034) ng/mL NT-Pro-B Natriuret Pep (<125) pg/mL Total Protein 8.1 (6.3-8.2) g/dL Albumin 4.6 (3.5-5.0) g/dL Globulin 3.5 (1.7-4.1) g/dL Albumin/Globulin Ratio 1.3 (1.0-2.8) Lipase 196 (23-300) U/L Urine RBC (0-5/HPF) Urine WBC (0-5/HPF) Ur Squamous Epith Cells (0-5/HPF) Amorphous Sediment Urine Bacteria (None) Ur Culture Indicated? 07/29/20 07/29/20 07/30/20 Range/Units 22:00 22:00 00:52 WBC (4.5-11.0) X10^3/uL RBC (4.0-5.2) X10^6/uL Hgb (12.0-16.0) g/dL Hct (36-46) % MCV (80-100) fL MCH (26-34) PG MCHC (30-36) % RDW (11.6-14.8) % Plt Count (150-400) X10^3/uL Neut % (Auto) (50-75) % Lymph % (Auto) (25-40) % [place] % (Auto) (3-14) % Eos % (Auto) (2-4) % Baso % (Auto) (0-2) % Neut # (Auto) (0909-7533) /uL Lymph # (Auto) (9179-2660) /uL [place] # (Auto) (0-900) /uL Eos # (Auto) (0-450) /uL Baso # (Auto) (0-100) /uL PT (10.1-12.7) SECONDS INR (0.9-1.3) APTT (26.4-36.2) SECONDS Sodium (137-145) mmol/L Potassium (3.4-5.1) mmol/L Chloride (98-107) mmol/L Carbon Dioxide (22-32) mmol/L BUN (7-17) mg/dL Creatinine (0.52-1.04) mg/dL Estimated GFR (>60) mL/min BUN/Creatinine Ratio (6-22) Glucose (70-100) mg/dL Calcium (8.4-10.2) mg/dL Total Bilirubin (0.2-1.3) mg/dL AST (14-36) IU/L ALT (<35) IU/L Alkaline Phosphatase (38-126) U/L Troponin I < 0.012 (0.01-0.034) ng/mL NT-Pro-B Natriuret Pep 17 (<125) pg/mL Total Protein (6.3-8.2) g/dL Albumin (3.5-5.0) g/dL Globulin (1.7-4.1) g/dL Albumin/Globulin Ratio (1.0-2.8) Lipase (23-300) U/L Urine RBC 0-1/hpf (0-5/HPF) Urine WBC None seen (0-5/HPF) Ur Squamous Epith Cells 0-1 /hpf (0-5/HPF) Amorphous Sediment 3+ Urine Bacteria Occasional (0-1) (None) Ur Culture Indicated? Cult not indicated Point of Care Testing Test Results Negative Urine Dip Bedside Urine Glucose Negative Bedside Urine Bilirubin - Negative Bedside Urine Ketone +/- 5 Urine Specific [place] 1.010 Bedside Urine Occult Blood +/- Bedside Urine pH 8.5 Bedside Urine Protein + 30 Bedside Urine Urobilinogen - Negative Bedside Urine Nitrite - Negative Bedside Urine Leukocytes - Negative Esterase Point of care testing: Point of Care Testing Test Results Negative Urine Dip Bedside Urine Glucose Negative Bedside Urine Bilirubin - Negative Bedside Urine Ketone +/- 5 Urine Specific [place] 1.010 Bedside Urine Occult Blood +/- Bedside Urine pH 8.5 Bedside Urine Protein + 30 Bedside Urine Urobilinogen - Negative Bedside Urine Nitrite - Negative Bedside Urine Leukocytes - Negative Esterase Imaging Data Chest x-ray: Radiologist's Impression: no active process Dr Augie Qiu MD ECG Data Attestation: I personally reviewed and interpreted this ECG as follows: Interpretation: Sinus rhythm at a rate of 73 Normal axis, normal intervals No acute ischemic changes MDM Narrative Medical decision making narrative: 30-year-old woman presents with significant dizziness and what sounds like a near syncopal episode with significant orthostasis. She feels significantly better after 2 L a fluid. The remainder of her workup is reassuring with no evidence of acute coronary syndrome, congestive heart failure, pulmonary etiology or obvious infection. She is not significantly anemic. There is no evidence of a urinary tract infection or acute blood loss. At this point I suspect that the majority of her symptoms are secondary to dehydration. Questions are answered. She is safe for home discharge. Discharge Plan Departure Patient Disposition: Home Clinical Impression: Dizziness, Dehydration Instructions: Orthostatic Hypotension Activity Restrictions/Additional Instructions: Thank you for coming in today With your headache and heart rate increasing when your standing up I suspect that you are developing a viral infection. It does not appear to be COVID. The 2 L of fluid that you received in the emergency room did seem to help bit. It is okay to use the ondansetron to help with nausea over the next day or so if needed. Using 400 mg of ibuprofen (2 [id number] pills) and 1 Tylenol every 6 hours can be very helpful in controlling headache or muscle aches. Please try to drink as much fluid as your able to and I would encourage you to sleep this much tissue can over the next 24 hours. If your symptoms worsen or change, please feel free to return to the ER for re-evaluation Prescriptions: No Action amoxicillin 250 MG capsule 500 mg PO TID Qty: 0 RF: 0 meloxicam [Mobic] 15 mg tablet 15 mg PO DAILY Qty: 20 RF: 0 lidocaine [Lidoderm] 5 % adhesive patch,medicated 1 patch TOP Q24H Qty: 30 RF: 0
[2020-07-30] VITALS (8 sets, daily range): BP systolic 101–120; BP diastolic 65–81; PULSE 59–96; RESP 14–23; TEMP 36.6; O2SAT 96–100
[2020-07-30] MEDS: ONDANSETRON 4 MG/2 ML INJ IV (00:50)
[2020-07-30] MEDS: SODIUM CHLORIDE 0.9% 1,000 ML 2000 ML IV (00:50)
[2020-07-30] MEDS: POTASSIUM CHLORIDE 20 MEQ TAB 40 MEQ PO (00:50)
[2020-07-30 01:02] LABS: WBC Urine None Seen (0-5/HPF)
[2020-07-30 01:08] LABS: Amorphous Sediment Urine 3+; RBC Urine 0-1/HPF (0-5/HPF); Squamous Epithelial Cell Urine 0-1 /HPF (0-5/HPF)
[2020-07-30 01:09] LABS: Bacteria Urine Occasional (0-1); Culture Indicated Urine Cult Not Indicated
--- NOTE | 2020-07-30 02:33 | PC.NURSE ---
completed meal without nausea. states remains dizzy but better than arrival
[2020-07-30] MEDS: ONDANSETRON 4 MG ODT SL (03:02)
[2020-07-30] MEDS: IBUPROFEN 400 MG TABLET PO (03:03)
[2020-07-30] MEDS: ACETAMINOPHEN 325 MG TABLET PO (03:03)
== END 2020-07-30 03:17 | disposition home or self-care (01) ==
PROVIDERS: Emergency Provider Emergency Medicine
DX: R42 Dizziness and giddiness (principal); E86.0 Dehydration; R55 Syncope and collapse; M79.602 Pain in left arm; R11.10 Vomiting, unspecified; I50.9 Heart failure, unspecified
CPT/HCPCS: 36415; 71045; 80053; 81003; 81015; 81025; 83690; 83880; 84484; 85025; 85610; 85730; 93005; 93010; 96361; 96374; 99283; 99284; J2405

== ENCOUNTER 2021-07-06 21:29 | Emergency (ER) | payer OTHER, SELFPAY ==
[2021-07-06 21:39] VITALS: BP 128/79; PULSE 99; RESP 15; TEMP 36.9; O2SAT 98; BMI 22.1
[2021-07-06 22:00] LABS: COVID19 -Nasal RAPID Negative (Negative)
--- NOTE | 2021-07-06 22:21 | ED.URI ---
HPI - URI/Sore Throat General Chief Complaint: Upper Respiratory Symptoms Stated Complaint: sore throat Time Seen by Provider: 07/06/21 21:48 Source: patient Mode of arrival: Ambulatory History of Present Illness HPI Narrative: 31-year-old female nonsmoker with noncontributory medical history presents with a variety of symptoms including runny nose, nasal congestion sneezing, sore throat, dry hacking cough and body aches. She has had symptoms for the better part of the week. She denies any nausea, vomiting or diarrhea. She states that her chest rosa and when she takes a deep breath she tends to cough. She denies any obvious exposure to those with known or suspected COVID. Related Data Home Medications Medication Instructions Recorded Confirmed amoxicillin 250 mg capsule 500 mg PO TID #0 09/27/17 Previous Rx's Medication Instructions Recorded lidocaine 5 % topical patch 1 patch TOP Q24H #30 each 11/13/18 (Lidoderm) meloxicam 15 mg tablet (Mobic) 15 mg PO DAILY #20 tab 11/13/18 Allergies Allergy/AdvReac Type Severity Reaction Status Date / Time No Known Drug Allergies Allergy Verified 09/29/19 13:50 Review of Systems Review of Systems Narrative: GENERAL: See HPI HEENT: See HPI RESPIRATORY: See HPI CARDIOVASCULAR: Denies chest pain, palpitations, orthopnea, edema, GASTROINTESTINAL: Denies nausea, vomiting, abdominal pain, diarrhea, constipation, melena. : Denies dysuria, frequency, incontinence, hematuria, urinary retention. MUSCULOSKELETAL: denies weakness, joint pain, or bony pain SKIN: Denies rash, skin lesions, or other NEUROLOGIC: Denies weakness, headache, numbness, change in speech, confusion, seizures, incoordination. PSYCHIATRIC: No concerning psychosocial issues. 12 point review of systems is negative except for those stated above Patient History Medical History Anxiety Surgical History Status post appendectomy Social History Smoking Status: Never smoker alcohol intake: never substance use type: does not use Smoking Status: Never smoker alcohol intake frequency: holidays/special occasions only Substance Use Type: does not use Exam Narrative Exam Narrative: GEN: AOx3 and in mild distress EYES: Pupils are equal, round, and reactive to light and accommodation. Extraoccular muscles are intact bilaterally. There is no subconjunctival hemorrhage or exudate. ENT: Clear posterior pharyngeal drainage, no petechiae, erythema, swelling or exudate. No tender anterior or posterior lymphadenopathy CHEST: Lungs are clear to auscultation bilaterally and free of wheezes, rales, or rhonchi. Heart rate is regular rhythm, there are no murmurs, clicks, rubs, or gallops. There is no chest wall tenderness. No significant work of breathing, use of intercostals, accessory muscles or need for supplemental oxygen ABD: Abdomen is soft and nontender. There is no guarding or rebound. Bowel sounds are normal in all 4 quadrants. There is no mass or organomegaly. EXT: Full painless ROM of all extremities with no loss of sensation or strength. SKIN: Warm, pink, and dry. No erythema or rash Initial Vital Signs Initial Vital Signs: Vital Signs Temperature 98.4 F 07/06/21 21:39 Pulse Rate 99 H 07/06/21 21:39 Respiratory Rate 15 07/06/21 21:39 Blood Pressure 128/79 07/06/21 21:39 Pulse Oximetry 98 07/06/21 21:39 Course Orders Ordered: ED Orders 07/06/21 21:38 COVID19 -Nasal swab/Pre-Proc Stat Vital Signs Vital signs: Vital Signs - 8 hr 07/06/21 21:39 Temperature 98.4 F Pulse Rate 99 H Respiratory Rate 15 Blood Pressure 128/79 Pulse Oximetry 98 MDM - URI/Sore Throat Lab Data Labs: Lab Results 07/06/21 Range/Units 21:38 SARS-CoV-2 (PCR) Negative (Negative) Point of Care Testing Rapid Strep A Negative [facility] Narrative Medical decision making narrative: Patient has a very reassuring history and physical exam. She demonstrates no fever, increased work of breathing or need for supplemental oxygen. Widespread symptoms and exam are most consistent with viral etiology. Rapid strep is negative, throat culture sent for completeness. COVID is negative. Return precautions given and questions answered to her apparent satisfaction Discharge Plan Departure Patient Disposition: Home Clinical Impression: Upper respiratory infection Instructions: DI for Viral Upper Respiratory Infection -- Adult Activity Restrictions/Additional Instructions: *You have been diagnosed with [viral upper respiratory infection with pharyngitis. Thankfully your strep test and COVID were both negative. As we discussed, your history, physical exam and testing would suggest that this is likely a viral upper respiratory infection which should run its course with time. *What to do: *Please consider taking [id number] cough and cold medications which contains some combination of an antihistamine which will decrease the secretions which are likely causing or so throat and cough, as well as a pain and fever printed circuit board assembly repairer such as Tylenol or Motrin. * today we took a culture of your throat which will take a few days to give us results. If it shows that you have a bacterial infection which would require a specific treatment we will call you, otherwise we will not notify you of a negative result *Please follow up with your primary care provider in 2-3 days, call for an appointment. Let them know you were seen in the Emergency Department and that we ask that you be seen in follow up. We will electronically transmit a record of today's note if your PCP is in our system *If you do not have a primary care provider please contact the [facility] Resource line at [phone]. They will ask some questions about your medical history and help get you set up with a doctor in the community. *Return to Emergency Department if you should have any new, worsening or concerning symptoms, such as [fever greater than 101 F, shaking chills, worsening pain, persistent vomiting or other bothersome symptoms] Prescriptions: No Action amoxicillin 250 MG capsule 500 mg PO TID Qty: 0 0RF meloxicam [Mobic] 15 mg tablet 15 mg PO DAILY Qty: 20 0RF Rx Instructions: not with other NSAIDs lidocaine [Lidoderm] 5 % adhesive patch,medicated 1 patch TOP Q24H Qty: 30 0RF Rx Instructions: leave on most painful area for 12 hrs
== END 2021-07-06 22:26 | disposition home or self-care (01) ==
PROVIDERS: Emergency Provider Emergency Medicine
DX: J06.9 Acute upper respiratory infection, unspecified (principal); Z20.822 Contact with and (suspected) exposure to COVID-19
CPT/HCPCS: 87070; 87077; 87147; 87635; 87880; 99282; C9803